=== PATIENT | female | born 1980 | race Caucasian/White ===

== ENCOUNTER 2023-07-26 21:06 | Emergency (ER) | payer BC ==
[~2023-07-26 21:06] MED LIST: Iopamidol 300 61% 100 ML VIAL FS ONE
[2023-07-26] MEDS ORDERED: Dexamethasone 10 MG/ML VIAL ONE (21:52)
[2023-07-26] MEDS ORDERED: Morphine 4 MG/ML VIAL ONE (21:52)
[2023-07-26 22:21] LABS: #Eosinphils 0.1 10x3/uL (0.0-0.5); #Monocytes 0.8 10x3/uL (0.0-1.1); #Neutrophils 7.9 10x3/uL (1.5-8.4); %Basophils 0.3 % (0.0-2.0); %Eosinophils 0.7 % (0.0-6.0); %Lymphocytes 11.5 % (18.0-47.0); %Monocytes 8.3 % (0.0-10.0); %Neutrophils 78.8 % (40.0-75.0); Hematocrit 39.8 % (34.9-44.5); Mean Corpuscular HGB CONC 32.7 g/dL (32.0-36.0); Mean Corpuscular Hemoglobin 29.5 pg (27.0-33.0); Mean Corpuscular Volume 90.5 fl (81.6-98.3); Mean Platelet Volume 10.1 fl (7.4-10.4); Platelet Count 263 10x3/uL (150-450); White Blood Cell (WBC) Count 10.1 10x3/uL (3.5-10.5)
[2023-07-26 22:37] LABS: ALT (SGPT) 11 U/L (8-55); AST (SGOT) 11 U/L (5-34); Albumin 3.9 g/dL (3.5-5.0); Alkaline Phosphatase 54 U/L (40-110); Anion Gap 12 mmol/L (10-20); BUN (Urea Nitrogen) 14 mg/dL (7.0-18.7); Bilirubin, Total 0.8 mg/dL (0.2-1.2); Calc. Creatinine Clearance 0 mL/min (70-130); Calcium 8.9 mg/dL (7.8-10.44); Carbon Dioxide 23 mmol/L (22-29); Chloride 110 mmol/L (98-107); Estimated GFR 92; Glucose 100 mg/dL (70-105); Potassium 3.8 mmol/L (3.5-5.1); Protein, Total 6.9 g/dL (6.0-8.3); Sodium 141 mmol/L (136-145)
== END 2023-07-26 23:32 | disposition home or self-care (01) ==
LOC: CSHERS 21:06
DX: J02.9 Acute pharyngitis, unspecified (principal)
CPT/HCPCS: 70491; 80053; 83605; 85025; 86140; 96361; 96374; 96375; J1100; J2270; Q9967